=== PATIENT | male | born 1985 | race Two or more races ===

== ENCOUNTER 2018-07-27 21:36 | Emergency (ER) | payer SELFPAY ==
--- NOTE | 2018-07-27 22:18 | EDM.PDOC ---
ED HPI GENERAL MEDICAL PROBLEM - General Chief Complaint: Upper Extremity Injury/Pain Stated Complaint: SHOULDER PAIN,EAR ACHE Time Seen by Provider: 07/27/18 21:47 - History of Present Illness INITIAL COMMENTS - FREE TEXT/NARRATIVE: HISTORY AND PHYSICAL: History of present illness: The patient is a 32-year-old male who says that he injured his right shoulder years ago and was playing softball 3 days ago throwing the ball and he started having pain not in the shoulder in the right upper back area. He says there is just one area that hurts with certain movements and he feels like it's a muscle spasm. He did not fall or hit the shoulder and he has no anterior shoulder pain no chest pain and no distal right upper extremity pain. He says he took one dose of anti-inflammatory and it didn't work and he has not been icing the area but says the pain is worse after work. He is having no chest pain or shortness of breath no abdominal pain and no other systemic complaints. He is complaining of some pain in his left ear and says that he could peroxide in it yesterday and it seemed to elevate it worse. Review of systems: As per history of present illness and below otherwise all systems reviewed and negative. Past medical history: As per history of present illness and as reviewed below otherwise noncontributory. Surgical history: As per history of present illness and as reviewed below otherwise noncontributory. Social history: No reported history of drug or alcohol abuse. Family history: As per history of present illness and as reviewed below otherwise noncontributory. Physical exam: General: Well-developed well-nourished thin man who is nontoxic and vital signs are noted by me HEENT: Atraumatic, normocephalic, pupils reactive, negative for conjunctival pallor or scleral icterus, mucous membranes moist, throat clear, neck supple, nontender, trachea midline. The TM on the right is within normal limits and there is cerumen in the canal, the TM on the left is difficult to see because of impacted cerumen in the external canal history pre-fluid and swelling. There is no mastoid tenderness or erythema Lungs: Clear to auscultation, breath sounds equal bilaterally, chest nontender. Heart: S1S2, regular rate and rhythm no overt murmurs Abdomen: Soft, nondistended, nontender. NABS Pelvis: Deferred Genitourinary: Deferred. Rectal: Deferred. Extremities: Atraumatic, negative for cords or calf pain. Neurovascular unremarkable. At the right shoulder there is no trigger point tenderness no defects deformities or fluid in the right shoulder joint and no tenderness with palpation of the shoulder. At the upper back musculature there is reproducible tenderness just to the right of the midline and there is discomfort that I can elicit with range of motion of the shoulder girdle. Neuro: Awake, alert, oriented. Cranial nerves II through XII unremarkable. Cerebellum unremarkable. Motor and sensory unremarkable throughout. Exam nonfocal. Diagnostics: [] Therapeutics: [] Impression: Right posterior shoulder musculoskeletal pain acute on chronic, left otitis externa Definitive disposition and diagnosis as appropriate pending reevaluation and review of above. right shoulder area Pain Score (Numeric/FACES): 8 - Related Data Allergies Allergy/AdvReac Type Severity Reaction Status Date / Time No Known Allergies Allergy Verified 07/27/18 21:59 Home Meds: Home Meds . [No Known Home Meds] 03/22/18 [History] Past Medical History - Past Health History Medical/Surgical History: Denies Medical/Surgical History HEENT History: Reports: None Cardiovascular History: Reports: None Respiratory History: Reports: None Gastrointestinal History: Reports: None Genitourinary History: Reports: None Musculoskeletal History: Reports: None Neurological History: Reports: None Psychiatric History: Reports: None Endocrine/Metabolic History: Reports: None Hematologic History: Reports: None Immunologic History: Reports: None Oncologic (Cancer) History: Reports: None Dermatologic History: Reports: None - Infectious Disease History Infectious Disease History: Reports: None - Past Surgical History Head Surgeries/Procedures: Reports: None Social & Family History - Family History Family Medical History: Noncontributory - Tobacco Use Smoking Status *Q: Current Every Day Smoker Years of Tobacco use: 5 Packs/Tins Daily: 0.5 - Caffeine Use Caffeine Use: Reports: Coffee, Energy Drinks, Soda - Recreational Drug Use Recreational Drug Use: No Review of Systems - Review of Systems Review Of Systems: ROS reveals no pertinent complaints other than HPI. ED EXAM, GENERAL - Physical Exam Exam: See Below (See dictation) Course - Vital Signs Last Recorded V/S: Last Vital Signs Temp 36.4 C 07/27/18 21:59 Pulse 71 07/27/18 21:59 Resp 18 04/10/19 21:59 BP 127/76 07/27/18 21:59 Pulse Ox 98 07/27/18 21:59 Departure - Departure Time of Disposition: 22:16 Disposition: Home, Self-Care 01 Condition: Good Clinical Impression: Musculoskeletal pain of extremity Otitis externa Qualifiers: Otitis externa type: unspecified type Chronicity: unspecified Laterality: left Qualified Code(s): H60.92 - Unspecified otitis externa, left ear - Discharge Information Referrals: PCP,None [Primary Care Provider] - Additional Instructions: The following information is given to patients seen in the emergency department who are being discharged to home. This information is to outline your options for follow-up care. We provide all patients seen in our emergency department with a follow-up referral. The need for follow-up, as well as the timing and circumstances, are variable depending upon the specifics of your emergency department visit. If you don't have a primary care physician on staff, we will provide you with a referral. We always advise you to contact your personal physician following an emergency department visit to inform them of the circumstance of the visit and for follow-up with them and/or the need for any referrals to a consulting specialist. The emergency department will also refer you to a specialist when appropriate. This referral assures that you have the opportunity for followup care with a specialist. All of these measure are taken in an effort to provide you with optimal care, which includes your followup. Under all circumstances we always encourage you to contact your private physician who remains a resource for coordinating your care. When calling for followup care, please make the office aware that this follow-up is from your recent emergency room visit. If for any reason you are refused follow-up, please contact the [facility] emergency department at and ask to speak to the emergency department charge nurse. [facility] Primary care- Internal Medicine and Family [address] [address] Please ice the area of discomfort after all activities including work. Use the diclofenac you have been prescribed for pain management and use the eardrops, Cortisporin, T her left ear as directed. Please nothing into your left ear until you're finished with the treatment. Expect drainage from the ear. Use over -the-counter Tylenol in addition to the diclofenac as you choose for pain management. Call and schedule a follow-up appointment in the clinic and return to ER as needed and as discussed
== END 2018-07-27 22:40 | disposition home or self-care (01) ==
LOC: MW.ED 21:36
DX: M25.511 Pain in right shoulder (principal); H60.92 Unspecified otitis externa, left ear; F17.210 Nicotine dependence, cigarettes, uncomplicated
CPT/HCPCS: 99283

== ENCOUNTER 2019-07-25 15:30 | Emergency (ER) | payer SELFPAY ==
[2019-07-25] MEDS ORDERED: cefTRIAXone 1 GM Vial IM ONE (16:20)
[2019-07-25] MEDS ORDERED: cefTRIAXone 1 GM in Premix Bag 1 BAG IV ONE (16:21)
[2019-07-25] MEDS ORDERED: methylPREDNISolone Sodium Succinate 125 MG/2 ML SDV IVPUSH ONE (16:28)
--- NOTE | 2019-07-25 16:29 | EDM.PDOC ---
ED HPI GENERAL MEDICAL PROBLEM - General Chief Complaint: ENT Problem Stated Complaint: FACIAL SWELLING Time Seen by Provider: 07/25/19 15:33 Source of Information: Reports: Patient History Limitations: Reports: No Limitations - History of Present Illness INITIAL COMMENTS - FREE TEXT/NARRATIVE: HISTORY AND PHYSICAL: History of present illness: Patient is a 33-year-old male who presents to the ED today with concern of left- sided facial swelling over the past couple days and states that his sinus is starting to hurt from it. Patient over the past 2-3 days, he noted some swelling of his face and started having more pain of the left sinus yesterday and today. Patient states when he woke up this morning the swelling has spread and now and feels further up into his eye. Patient denies any trauma or injury. Patient denies any other symptoms or concerns. Patient denies fever, chills, chest pain, shortness of breath, or cough. Denies headache, neck stiff ness, change in vision, syncope, or near syncope. Denies nausea, vomiting, abdominal pain, diarrhea, constipation, or dysuria. Has not noted any blood in urine or stool. Patient has been eating and drinking appropriately. Review of systems: As per history of present illness and below otherwise all systems reviewed and negative. Past medical history: As per history of present illness and as reviewed below otherwise noncontributory. Surgical history: As per history of present illness and as reviewed below otherwise noncontributory. Social history: See social history for further information Family history: As per history of present illness and as reviewed below otherwise noncontributory. Physical exam: General: Patient is alert, oriented, and in no acute distress. Patient sitting comfortably on exam table. HEENT: Generalized poor dentition. Tooth #11 is severely eroded to the gumline with surrounding edema of the gums. However, no obvious drainable abscess is noted in the mouth. There is moderate edema of the left maxillary sinus area which extends to the left lower eyelid. EOMS intact without pain or difficulty. Negative for crepitus on palpation. Otherwise, atraumatic, normocephalic, pupils equal and reactive bilaterally, negative for conjunctival pallor or scleral icterus, mucous membranes moist, TMs normal bilaterally, throat clear, neck supple, nontender, trachea midline. No drooling or trismus noted. No meningeal signs. No hot potato voice noted. Lungs: Clear to auscultation, breath sounds equal bilaterally, chest nontender. Heart: S1S2, regular rate and rhythm without overt murmur Abdomen: Soft, nondistended, nontender. Negative for masses or hepatosplenomegaly. Negative for costovertebral tenderness. Pelvis: Stable nontender. Genitourinary: Deferred. Rectal: Deferred. Skin: Intact, warm, dry. No lesions or rashes noted. Extremities: Atraumatic, negative for cords or calf pain. Neurovascular unremarkable. Neuro: Awake, alert, oriented. Cranial nerves II through XII unremarkable. Cerebellum unremarkable. Motor and sensory unremarkable throughout. Exam nonfocal. Notes: Dr. Edwards, ENT specialist in [place], consulted on patient and requesting transfer to [place] for drainage of abscess at this time. Dr. Meza, ER provider [place], consulted on patient and accepting of transfer. I strongly encourage patient to take an ambulance transfer to [place] but patient adamantly refuses stating he will drive himself to [place] or go home. All risks vs benefits discussed with patient and adamantly refuses ambulance transfer. Patient states he will drive himself to [place] immediately following discharge. Discussed with patient to immediately drive to [facility] Emergency Room and to not eat or drink after discharge until evaluated by ENT in [place] and that they will be expecting his arrival. [facility] informed of patient preference of transfer. Voices understanding and is agreeable to plan of care. Denies any further questions or concerns at this time. Diagnostics: CBC, CMP, lactate, blood culture x 2, Maxillofacial CT w cont Therapeutics: Solumedrol, Rocephin Impression: Maxilla abscess with cellulitis Plan: Transfer to [place] to Dr. Meza via private vehicle Definitive disposition and diagnosis as appropriate pending reevaluation and review of above. - Related Data Allergies Allergy/AdvReac Type Severity Reaction Status Date / Time No Known Allergies Allergy Verified 07/27/18 21:59 Home Meds: Home Meds . [No Known Home Meds] 03/22/18 [History] Past Medical History - Past Health History Medical/Surgical History: Denies Medical/Surgical History HEENT History: Reports: None Cardiovascular History: Reports: None Respiratory History: Reports: None Gastrointestinal History: Reports: None Genitourinary History: Reports: None Musculoskeletal History: Reports: None Neurological History: Reports: None Psychiatric History: Reports: None Endocrine/Metabolic History: Reports: None Hematologic History: Reports: None Immunologic History: Reports: None Oncologic (Cancer) History: Reports: None Dermatologic History: Reports: None - Infectious Disease History Infectious Disease History: Reports: Chicken Pox - Past Surgical History Head Surgeries/Procedures: Reports: None Social & Family History - Family History Family Medical History: Noncontributory - Tobacco Use Smoking Status *Q: Current Every Day Smoker Years of Tobacco use: 11 Packs/Tins Daily: 1 Used Tobacco, but Quit: No - Caffeine Use Caffeine Use: Reports: Energy Drinks Caffeine Use Comment: 6 or 7 redbulls each day and "a lot of mountain dew" - Recreational Drug Use Recreational Drug Use: No ED ROS GENERAL - Review of Systems Review Of Systems: Comprehensive ROS is negative, except as noted in HPI. ED EXAM, GENERAL - Physical Exam Exam: See Below (see dictation) Course - Vital Signs Last Recorded V/S: Last Vital Signs Temp 98.1 F 07/25/19 15:58 Pulse 100 07/25/19 15:58 Resp 18 07/25/19 15:58 BP 113/67 07/25/19 15:58 Pulse Ox 100 07/25/19 15:58 - Orders/Labs/Meds Orders: Active Orders 24 hr Category Date Time Status CULTURE BLOOD [BC] Stat Lab 07/25/19 16:36 Received CULTURE BLOOD [BC] Stat Lab 07/25/19 16:58 Received Blood Culture x2 Reflex Set [OM.PC] Stat Oth 07/25/19 16:30 Ordered Labs: Laboratory Tests 07/25/19 07/25/19 07/25/19 Range/Units 16:28 16:28 16:58 WBC 7.75 (4.0-11.0) K/uL RBC 4.32 L (4.50-5.90) M/uL Hgb 14.1 (13.0-17.0) g/dL Hct 43.0 (38.0-50.0) % MCV 99.5 H (80.0-98.0) fL MCH 32.6 H (27.0-32.0) pg MCHC 32.8 (31.0-37.0) g/dL RDW Std Deviation 47.6 (28.0-62.0) fl RDW Coeff of Miles 13 (11.0-15.0) % Plt Count 161 (150-400) K/uL MPV 12.20 H (7.40-12.00) fL Neut % (Auto) 71.3 (48.0-80.0) % Lymph % (Auto) 16.1 (16.0-40.0) % [place] % (Auto) 9.4 (0.0-15.0) % Eos % (Auto) 2.6 (0.0-7.0) % Baso % (Auto) 0.6 (0.0-1.5) % Neut # (Auto) 5.5 (1.4-5.7) K/uL Lymph # (Auto) 1.3 (0.6-2.4) K/uL [place] # (Auto) 0.7 (0.0-0.8) K/uL Eos # (Auto) 0.2 (0.0-0.7) K/uL Baso # (Auto) 0.1 (0.0-0.1) K/uL Nucleated RBC % 0.0 /100WBC Nucleated RBCs # 0 K/uL Lactate 0.9 (0.20-2.00) mmol/L Sodium 142 (136-148) mmol/L Potassium 4.2 (3.5-5.1) mmol/L Chloride 105 (98-107) mmol/L Carbon Dioxide 30.1 (21.0-32.0) mmol/L BUN 20 H (7.0-18.0) mg/dL Creatinine 1.2 (0.8-1.3) mg/dL Est Cr Clr Drug Dosing 77.59 mL/min Estimated GFR (MDRD) > 60.0 ml/min Glucose 95 (74-106) mg/dL Calcium 8.6 (8.5-10.1) mg/dL Total Bilirubin 0.2 (0.2-1.0) mg/dL AST 9 L (15-37) IU/L ALT 27 (14-63) IU/L Alkaline Phosphatase 67 (46-116) U/L Total Protein 6.5 (6.4-8.2) g/dL Albumin 3.7 (3.4-5.0) g/dL Globulin 2.8 (2.6-4.0) g/dL Albumin/Globulin Ratio 1.3 (0.9-1.6) Meds: Medications Discontinued Medications Generic Name Dose Route Start Last Admin Trade Name Renetta PRN Reason Stop Dose Admin Ceftriaxone Sodium 1 gm 07/25/19 16:20 Rocephin IM 07/25/19 16:21 ONETIME ONE Ceftriaxone Sodium/Dextrose 1 50 mls @ 100 mls/hr 07/25/19 16:21 07/25/19 17: 48 gm/ Premix IV 07/25/19 16:50 100 mls/hr ONETIME ONE Administration Iopamidol 85 ml 07/25/19 17:34 07/25/19 17:35 Isovue Multipack-370 (76%) IVPUSH 07/25/19 17:35 85 ml ONETIME STA Administration Methylprednisolone Sodium Succinate 125 mg 07/25/19 16:28 07/25/19 17:48 Solu-Medrol IVPUSH 07/25/19 16:29 125 mg ONETIME ONE Administration Nicotine 14 mg 07/25/19 18:16 Habitrol TRDERM 07/25/19 18:17 ONETIME ONE Departure - Departure Time of Disposition: 18:30 Disposition: DC/Tfer to Acute Hospital 02 Clinical Impression: Abscess of maxilla - Discharge Information Referrals: PCP,None [Primary Care Provider] - Forms: ED Department Discharge Sepsis Event Note - Evaluation Sepsis Screening Result: No Definite Risk - Focused Exam Vital Signs: Vital Signs Temp Pulse Resp BP Pulse Ox 07/25/19 15:58 98.1 F 100 18 113/67 100 Date Exam was Performed: 07/25/19 Time Exam was Performed: 18:24 - My Orders Last 24 Hours: My Active Orders 07/25/19 16:30 Blood Culture x2 Reflex Set [OM.PC] Stat 07/25/19 16:36 CULTURE BLOOD [BC] Stat 07/25/19 16:58 CULTURE BLOOD [BC] Stat - Assessment/Plan Last 24 Hours: My Active Orders 07/25/19 16:30 Blood Culture x2 Reflex Set [OM.PC] Stat 07/25/19 16:36 CULTURE BLOOD [BC] Stat 07/25/19 16:58 CULTURE BLOOD [BC] Stat
[2019-07-25 16:59] LABS: BLOOD UREA NITROGEN,BUN 20 mg/dL (7.0-18.0); CARBON DIOXIDE,CO2 30.1 mmol/L (21.0-32.0); CHLORIDE,CL 105 mmol/L (98-107); GLUCOSE RANDOM 95 mg/dL (74-106); POTASSIUM,K 4.2 mmol/L (3.5-5.1); SODIUM,NA 142 mmol/L (136-148)
[2019-07-25] MEDS ORDERED: Iopamidol 755 MG/ML 500 ML Multipack Bottle IVPUSH STA (17:34)
--- NOTE | 2019-07-25 17:56 | CT ---
Addendum: Slight soft tissue swelling may be present on the left side inferior to the left orbit within the left cheek. No soft tissue abscess is seen. --- Addendum1 above dictated on [07/25/2019 17:12] by [Rod Akers, Adilson Thacker] --- --- Addendum1 above signed on [07/25/2019 17:12] by [Rod Akers Hilton J.] --- --- Original report below dictated on [07/25/2019 16:50] by [Rod Akers Hilton J.] --- --- Original report below signed on [07/25/2019 16:52] by [Rod Akers Hilton J.] --- CT maxillofacial Technique: Multiple axial sections were obtained through the maxillofacial structures. Reconstructed coronal and sagittal images were obtained. Intravenous contrast was utilized. Findings: Large expansile lesion is seen within the right side of the anterior maxilla. This finding measures approximately 2.0 cm in size and shows a thin surrounding bony rim. There is increased soft tissue density anteriorly to this lesion. Scattered dental caries are present. No additional soft tissue abnormality is seen within the facial structures. Mild mucosal thickening is seen within the left maxillary sinus. No air-fluid levels are seen within the maxillary sinuses. Scattered lymph nodes are seen believed to be within normal limits. Impression: 1. 2 cm expansile lesion within the anterior right maxilla. Increased density within the adjacent anterior soft tissues. This finding may represent large abscess with soft tissue swelling and cellulitis. Benign or malignant bone lesion is also within the differential. 2. Mild mucosal thickening within left maxillary sinus which most likely is chronic. 3. Scattered dental caries are present. Diagnostic code #5 Study was dictated in MDT --- Addendum1 signed ---
[2019-07-25] MEDS ORDERED: Nicotine 14 MG/24 Hr Patch TRDERM ONE (18:16)
== END 2019-07-25 18:51 ==
LOC: MW.ED 15:30
DX: M27.2 Inflammatory conditions of jaws (principal); L03.211 Cellulitis of face; F17.210 Nicotine dependence, cigarettes, uncomplicated
CPT/HCPCS: 36415; 70487; 80053; 83605; 85025; 87040; 96365; 96375; 99284; J0696; J2930; Q9967

== ENCOUNTER 2020-12-13 02:10 | Emergency (ER) | payer SELFPAY ==
[2020-12-13] MEDS ORDERED: Diphtheria,Pertussis(Acell),Tetanus Vaccine 0.5 ML Syringe IM ONE (02:27)
--- NOTE | 2020-12-13 02:27 | EDM.PDOC ---
ED HPI GENERAL MEDICAL PROBLEM - General Chief Complaint: Laceration Stated Complaint: RIGHT THUMB CUT Time Seen by Provider: 12/13/20 02:13 - History of Present Illness INITIAL COMMENTS - FREE TEXT/NARRATIVE: History of present illness: [] Patient was reaching behind him with his dominant right hand and cut his thumb on a knife. He has laceration of thumb with some distal numbness. There is normal function of the thumb. Patient is right-handed. Review of systems: As per history of present illness and below otherwise all systems reviewed and negative. Past medical history: As per history of present illness and as reviewed below otherwise noncontributory. Surgical history: As per history of present illness and as reviewed below otherwise noncontributory. Social history: No reported history of drug or alcohol abuse. Family history: As per history of present illness and as reviewed below otherwise noncontributory. Physical exam: Constitutional - well developed, well-nourished and in no acute distress HEENT - normocephalic, no evidence of trauma - external nose and mouth normal - no mass in neck and no JVD - mucosae moist EYES - full EOM, PERRL, no icterus - no evidence of inflammation, injection, or drainage Respiratory - no respiratory distress, equal bilateral expansion Musculoskeletal motor intact in the thumb has a normal joint position and no bony tenderness no gross deformity of long bones or joints - no tenderness, swelling or edema Neurologic -neuro intact in the thumb alert and oriented times four - CN II-XII grossly intact - motor sensory and coordination symmetrically normal Psychiatric - appropriate mood and affect with normal thought content Hematologic - No petechiae or purpura - mucosa appropriate color and sclera not pale - normal nail bed color and refill Integument -1 cm laceration at the volar IPJ of the thumb. Normal function. Patient feels light touch distally. No rash or evidence of trauma - normal turgor Diagnostics: [] Therapeutics: [] Impression: [] Plan: [] Definitive disposition and diagnosis as appropriate pending reevaluation and review of above. right thumb Pain Score (Numeric/FACES): 4 - Related Data Allergies Allergy/AdvReac Type Severity Reaction Status Date / Time No Known Allergies Allergy Verified 12/13/20 02:22 Home Meds: Home Meds . [No Known Home Meds] 03/22/18 [History] Past Medical History - Past Health History Medical/Surgical History: Denies Medical/Surgical History HEENT History: Reports: None Cardiovascular History: Reports: None Respiratory History: Reports: None Gastrointestinal History: Reports: None Genitourinary History: Reports: None Musculoskeletal History: Reports: None Neurological History: Reports: None Psychiatric History: Reports: None Endocrine/Metabolic History: Reports: None Hematologic History: Reports: None Immunologic History: Reports: None Oncologic (Cancer) History: Reports: None Dermatologic History: Reports: None - Infectious Disease History Infectious Disease History: Reports: Chicken Pox - Past Surgical History Head Surgeries/Procedures: Reports: None Social & Family History - Family History Family Medical History: No Pertinent Family History - Tobacco Use Tobacco Use Status *Q: Current Some Day Tobacco User Years of Tobacco use: 15 Packs/Tins Daily: 1 - Caffeine Use Caffeine Use: Reports: None Caffeine Use Comment: 6 or 7 redbulls each day and "a lot of mountain dew" - Recreational Drug Use Recreational Drug Use: No ED ROS GENERAL - Review of Systems Review Of Systems: Comprehensive ROS is negative, except as noted in HPI. ED EXAM, SKIN/RASH Exam: See Below Text/Narrative:: My physical exam is in the HPI ED SKIN PROCEDURES - Laceration/Wound Repair Right Digit - 1st (Thumb) Appearance: Subcutaneous Anesthetic Type: Local Local Anesthesia - Lidocaine (Xylocaine): 1% Plain Local Anesthetic Volume: 4cc Exploration/Debridement/Repair: Wound Explored, In a Bloodless Field Closed with: Sutures Lac/Wound length In cm: 1 Suture Size: 5-0 # of Sutures: 3 Suture Type: Nylon, Simple Course - Vital Signs Last Recorded V/S: Last Vital Signs Temp 36.8 C 12/13/20 02:17 Pulse 90 12/13/20 02:17 Resp 18 12/13/20 02:17 BP 118/84 12/13/20 02:17 Pulse Ox 98 12/13/20 02:17 - Orders/Labs/Meds Orders: Active Orders 24 hr Category Date Time Status Vaccines to be Administered [RC] PER UNIT ROUTINE Care 12/13/20 02:27 Active Meds: Medications Discontinued Medications Generic Name Dose Route Start Last Admin Trade Name Freq PRN Reason Stop Dose Admin Diphtheria/Tetanus/Acell Pertussis 0.5 ml 12/13/20 02:27 12/13/20 02:34 Diphtheria,Pertussis(Acell),Tetanus Vaccine 0.5 Ml Syringe IM 12/13/20 02:28 0.5 ml .ONCE ONE Administration Lidocaine HCl 5 ml 12/13/20 02:26 12/13/20 02:34 Lidocaine 1% 5 Ml Sdv INJECT 12/13/20 02:27 5 ml ONETIME ONE Administration Departure - Departure Time of Disposition: 02:55 Disposition: Home, Self-Care 01 Condition: Good Clinical Impression: Thumb laceration - Discharge Information Instructions: Laceration Care, Adult, Sutures, [place], or Adhesive Wound Closure, [id number] Referrals: PCP,None [Primary Care Provider] - Forms: ED Department Discharge Additional Instructions: Sutures out 7 to 10 days [facility] [address] [place] [id number] [address] The following information is given to patients seen in the emergency department who are being discharged to home. This information is to outline your options for follow-up care. We provide all patients seen in our emergency department with a follow-up referral. The need for follow-up, as well as the timing and circumstances, are variable depending upon the specifics of your emergency department visit. If you don't have a primary care physician on staff, we will provide you with a referral. We always advise you to contact your personal physician following an emergency department visit to inform them of the circumstance of the visit and for follow-up with them and/or the need for any referrals to a consulting specialist. The emergency department will also refer you to a specialist when appropriate. This referral assures that you have the opportunity for follow-up care with a specialist. All of these measure are taken in an effort to provide you with optimal care, which includes your follow-up. Under all circumstances we always encourage you to contact your private physician who remains a resource for coordinating your care. When calling for follow-up care, please make the office aware that this follow-up is from your recent emergency room visit. If for any reason you are refused follow-up, please contact the [facility] Emergency Department at and asked to speak to the emergency department charge nurse. Sepsis Event Note (ED) - Evaluation Sepsis Screening Result: No Definite Risk - Focused Exam Vital Signs: Vital Signs Temp Pulse Resp BP Pulse Ox 12/13/20 02:17 36.8 C 90 18 118/84 98 - My Orders Last 24 Hours: My Active Orders 12/13/20 02:27 Vaccines to be Administered [RC] PER UNIT ROUTINE - Assessment/Plan Last 24 Hours: My Active Orders 12/13/20 02:27 Vaccines to be Administered [RC] PER UNIT ROUTINE
== END 2020-12-13 03:05 | disposition home or self-care (01) ==
LOC: MW.ED 02:10
DX: S61.011A Laceration without foreign body of right thumb without damage to nail, initial encounter (principal); Z72.0 Tobacco use; Z23 Encounter for immunization; W26.0XXA Contact with knife, initial encounter; Y92.59 Other trade areas as the place of occurrence of the external cause
CPT/HCPCS: 12001; 90471; 90715; 99282-25

== ENCOUNTER 2021-10-04 23:51 | Emergency (ER) | payer OTHER ==
[2021-10-05] MEDS ORDERED: Ondansetron 4 MG/2 ML SDV IVPUSH ONE (01:06)
[2021-10-05] MEDS ORDERED: Morphine 4 MG/ML VIAL IVPUSH ONE (01:06)
== END 2021-10-05 02:06 | disposition home or self-care (01) ==
LOC: MW.ED 23:51
DX: S42.402A Unspecified fracture of lower end of left humerus, initial encounter for closed fracture (principal); V89.2XXA Person injured in unspecified motor-vehicle accident, traffic, initial encounter
CPT/HCPCS: 29105; 73070; 96374; 96375; 99284; J2270; J2405; 99283

== ENCOUNTER 2022-02-13 10:12 | Emergency (ER) | payer SELFPAY ==
[2022-02-13] MEDS ORDERED: Acetaminophen/HYDROcodone 325-10 MG Tab PO ONE (11:30)
[2022-02-13] MEDS ORDERED: Ketorolac 30 MG/ML SDV IVPUSH ONE (11:30)
[2022-02-13] MEDS: Sodium Chloride 0.9% 10 ML Syringe FLUSH PRN ×2 (11:35→15:31)
[2022-02-13] MEDS: Sodium Chloride 0.9% 2.5 ML Syringe FLUSH PRN ×2 (11:35→15:30)
[2022-02-13] MEDS ORDERED: Iopamidol 755 Mg/ML 100 ML Bottle IVPUSH ONE (12:35)
[2022-02-13 12:55] LABS: CARBON DIOXIDE,CO2 28.7 mmol/L (21.0-32.0); POTASSIUM,K 4.2 mmol/L (3.5-5.1)
[2022-02-13] MEDS ORDERED: Clindamycin Phosphate in D5W 600 MG in Premix Bag 1 BAG IV ONE ×2 (15:08)
== END 2022-02-13 16:12 | disposition home or self-care (01) ==
LOC: MW.ED 10:12
DX: L03.211 Cellulitis of face (principal); K04.7 Periapical abscess without sinus
CPT/HCPCS: 36415; 70491; 80053; 85025; 99284; A9270; J1885; J3490; Q9967